=== PATIENT | female | born 2000 | race Caucasian/White ===

== ENCOUNTER 2019-06-02 | Emergency (ER) | payer BC ==
--- NOTE | 2019-06-02 09:22 | ED ---
ENT HPI - General Chief complaint: ENT Stated complaint: Dental issues Time Seen by Provider: 06/02/19 08:51 Source: patient, RN notes reviewed Mode of arrival: ambulatory Limitations: no limitations - History of Present Illness Initial comments: 18-year-old female presents emergency Department chief complaint of possible dental issues. Patient had her wisdom teeth extracted by oral surgeon under anesthesia on Monday. Patient states that she noticed yesterday she drank some water and came out her nose. Patient states she has some very minimal dis comfort on the left side. Patient did call her oral surgeon who has appointment tomorrow with her. Patient denies fevers or chills denies any difficulty breathing no facial pain or ocular discomfort. - Related Data Home Medications Medication Instructions Recorded Confirmed Amoxicillin 500 mg PO TID 06/02/19 06/02/19 HYDROcodone/APAP 5-325MG [[place] 1 tab PO Q6H PRN 06/02/19 06/02/19 5-325] Ibuprofen [Motrin] 800 mg PO Q6H PRN 06/02/19 06/02/19 Ondansetron [Zofran] 4 mg PO Q8H PRN 06/02/19 06/02/19 Allergies Allergy/AdvReac Type Severity Reaction Status Date / Time Latex, Natural Rubber Allergy reddness Verified 06/02/19 09:03 Review of Systems ROS Statement: Those systems with pertinent positive or pertinent negative responses have been documented in the HPI. ROS Other: All systems not noted in ROS Statement are negative. Past Medical History Past Medical History: No Reported History History of Any Multi-Drug Resistant Organisms: None Reported Past Surgical History: No Surgical Hx Reported Past Psychological History: No Psychological Hx Reported Smoking Status: Never smoker Past Alcohol Use History: None Reported Past Drug Use History: None Reported General Exam Limitations: no limitations General appearance: alert, in no apparent distress Head exam: Present: atraumatic, normocephalic, normal inspection Eye exam: Present: normal appearance, PERRL, EOMI. Absent: scleral icterus, conjunctival injection, periorbital swelling ENT exam: Present: mucous membranes moist, TM's normal bilaterally, normal external ear exam. Absent: normal exam, normal oropharynx (Prior extractions feeling well, unable to fully visualize area of opening the left upper) Neck exam: Present: normal inspection, full ROM. Absent: tenderness, meningismus, lymphadenopathy Respiratory exam: Present: normal lung sounds bilaterally. Absent: respiratory distress, wheezes, rales, rhonchi, stridor Cardiovascular Exam: Present: regular rate, normal rhythm, normal heart sounds. Absent: systolic murmur, diastolic murmur, rubs, gallop, clicks Course Vital Signs 06/02/19 08:45 Temperature 98.7 F Pulse Rate 97 Respiratory 16 Rate Blood Pressure 120/82 O2 Sat by Pulse 99 Oximetry Medical Decision Making - Medical Decision Making 18-year-old female presented for dental issues. Patient most likely has An area between her maxillary sinus from recent tooth extraction. She is afebrile viral is stable she has no point otherwise she has an appointment tomorrow with oral surgeon. She'll continue antibiotics and return for any worsening symptoms. Disposition Clinical Impression: S/P wisdom tooth extraction Disposition: HOME SELF-CARE Condition: Stable Instructions (If sedation given, give patient instructions): Tooth Extraction (DC) Additional Instructions: Please return to the Emergency Department if symptoms worsen or any other concerns. Is patient prescribed a controlled substance at d/c from ED?: No Referrals: Nonstaff,Physician [Primary Care Provider] - 1-2 days Time of Disposition: 09:21
== END 2019-06-02 09:24 | disposition home or self-care (01) ==
CPT/HCPCS: 99282